=== PATIENT | male | born 1955 | race Caucasian/White ===

== ENCOUNTER 2018-01-13 13:35 | Emergency (ER) | payer OTHER, BC ==
[~2018-01-13] VITALS: Ht 165.1 cm; Wt 97.5 kg
[2018-01-13] MEDS ORDERED: LOSARTAN POTAS100 MG PO (13:49)
[2018-01-13] MEDS ORDERED: PAROXETINE HCL20 MG PO (13:49)
[2018-01-13] MEDS ORDERED: ASPIRIN81 MG PO (13:50)
[2018-01-13] MEDS ORDERED: FISH OIL 1,0001 EAC2 PO (13:50)
== END 2018-01-13 15:49 | disposition home or self-care (01) ==
LOC: ED 13:35
DX: H57.11 Ocular pain, right eye (principal); F17.200 Nicotine dependence, unspecified, uncomplicated; Z79.82 Long term (current) use of aspirin; Z79.899 Other long term (current) drug therapy
CPT/HCPCS: 99282

== ENCOUNTER 2020-03-27 08:33 | Day surgery (SDC) | payer BC ==
[~2020-03-27] VITALS: Ht 65.2 cm; Wt 97.5 kg
[~2020-03-27 08:33] MED LIST: ASPIRIN81 MG PO; FISH OIL 1,0001 EAC2 PO; LOSARTAN POTAS100 MG PO; PAROXETINE HCL20 MG PO; VITAMIN D325 MC2 PO
[2020-03-27] MEDS ORDERED: DAILY MULTIPLE1 EACH PO (08:53)
[2020-03-27] MEDS ORDERED: MELATONIN5 M2 PO (08:53)
--- NOTE | 2020-03-27 10:07 | NUR ---
03/27/20 1007 Christine Coleman 0945 PATIENT ARRIVES TO PACU SLEEPING. AWAKENS WITH VERBAL STIMULI. RESP EVEN AND UNLABORED, NC AT 5 LITERS. PATIENT BACK TO SLEEP WHEN NOT STIMULATED. 0950 PATIENT SLEEPING. NC DECREASED TO 3 LITERS. 1005 PATIENT SLEEPING. GIVES THUMBS UP WITH VERBAL STIMULI. RESP EVEN AND UNLABORED. NC OFF.
--- NOTE | 2020-03-27 19:09 | OR ---
[facility] [address], [place] [address] Signed DATE OF OPERATION: 03/27/2020 SURGEON: Aurea Barr MD PREOPERATIVE DIAGNOSES: 1. Screening. 2. Possible guaiac-positive stool. POSTOPERATIVE DIAGNOSES: 1. A 3 mm polyp at 4 cm. 2. 4 mm polyps x3 at 6 cm. 3. A 5 mm polyp at 12 cm. 4. A 5 mm polyp at 15 cm. 5. Minimal sigmoid diverticulosis. 6. Minimal internal hemorrhoids. PROCEDURE: Colonoscopy with hot biopsy. ESTIMATED BLOOD LOSS: None. INDICATIONS: Tayo is a 64-year-old gentleman asked to see me for his initial screening colonoscopy. He describes a sigmoidoscopy in his 40s for rectal bleeding. He thinks he may have had guaiac positive stool a couple of times, but he is not sure. He established with a new primary care provider and I was asked to see me for his initial screening colonoscopy. He gives no family history of colon cancer or polyps. In the office, I gave Tayo a pamphlet on colonoscopy. We looked at that together along with the risks including, but not limited to gas bloating, crampy abdominal pain, bleeding, perforation requiring surgery, and missed diagnosis. We also discussed the need for IV conscious sedation. He had expressed understanding and wished to proceed. PROCEDURE NOTE: Tayo was taken into our endoscopy suite and placed in the left lateral decubitus position. He was given IV sedation with 5 mg of Versed and 100 mcg of fentanyl. A digital rectal exam was performed and this was unremarkable. The adult colonoscope was introduced and advanced under direct visualization of camera without difficulty into the cecum itself. We could easily see the appendiceal orifice and the ileocecal valve. His prep was good. Scope was slowly withdrawn. He had a few diverticula in his sigmoid Electronically Signed By: AUREA BARR MD 03/27/20 1909 PATIENT NAME: TAYO MILLS OPERATIVE REPORT DATE OF : 59 REPORT #: [id number] PHYSICIAN: AUREA BARR MD PCP: NICOLÁS COLES MD REPORT IS CONFIDENTIAL AND NOT TO BE RELEASED WITHOUT AUTHORIZATION [facility] [address], [place] [address] Signed colon. They were small to moderate in size, few in number, and scattered about. His polyps were all down in the rectum easily removed with the help of hot biopsy forceps. Upon retroflexion of scope, he has minimal internal hemorrhoid tissue. After this, the gas was suctioned out, the colonoscope removed. Tayo tolerated the procedure quite well. RECOMMENDATIONS: I will see Tayo back in my office in 7 to 14 days to review his results. Aurea Barr MD ALB/MODL /[id number] cc: MD Dr. Nicolás Burgos Copies: AUREA BARR MD ~ Electronically Signed By: AUREA BARR MD 03/27/20 1909 PATIENT NAME: TAYO MILLS OPERATIVE REPORT DATE OF : 59 REPORT #: [id number] PHYSICIAN: AUREA BARR MD PCP: NICOLÁS COLES MD REPORT IS CONFIDENTIAL AND NOT TO BE RELEASED WITHOUT AUTHORIZATION
--- NOTE | 2020-03-28 11:44 | PATH ---
[facility] [address], [place] [address] Signed SPECIMEN(S): A COLON POLYP AT 6 CM SPECIMEN(S): B COLON POLYP AT 12 CM SPECIMEN(S): C COLON POLYP AT 15 CM SPECIMEN(S): D COLON POLYP AT 4 CM SPECIMEN SOURCE: A. COLON POLYP AT 6 CM B. COLON POLYP AT 12 CM C. COLON POLYP AT 15 CM D. COLON POLYP AT 4 CM CLINICAL HISTORY: Screening colonoscopy; polyps. MICROSCOPIC DESCRIPTION: Histologic sections of all submitted blocks are examined by light microscopy. These findings, together with the gross examination, support the pathologic diagnosis. FINAL PATHOLOGIC DIAGNOSIS: A. Colon, polyp at 6 cm, polypectomy: - Hyperplastic polyp. - Negative for dysplasia or malignancy. B. Colon, polyp at 12 cm, polypectomy: - Hyperplastic polyp. - Negative for dysplasia or malignancy. C. Colon, polyp at 15 cm, polypectomy: - Hyperplastic polyp. - Negative for dysplasia or malignancy. D. Colon, polyp at 4 cm, polypectomy: - Hyperplastic polyp. - Negative for dysplasia or malignancy. NAL:cml:C2NR GROSS DESCRIPTION: Four specimens are received in four containers, labeled "CD." A. The specimen, labeled "CD, colon polyp at 6 cm," is received in formalin and consists of two monzon soft tissue fragments that measure 0.2 cm in greatest dimension. The specimen is entirely submitted in cassette (A1). B. The specimen, labeled "CD, colon polyp at 12 cm," is received in formalin and consists of one monzon soft tissue fragment that measures 0.2 cm in greatest PATIENT NAME: TAYO MILLS PATHOLOGY DATE OF : 59 REPORT #: [id number] PHYSICIAN: [facility] PCP: GILES COLES MD REPORT IS CONFIDENTIAL AND NOT TO BE RELEASED WITHOUT AUTHORIZATION [facility] [address], [place] [address] Signed dimension. The specimen is entirely submitted in cassette (B1). C. The specimen, labeled "CD, colon polyp at 15 cm," is received in formalin and consists of one monzon soft tissue fragment that measures 0.2 cm in greatest dimension. The specimen is entirely submitted in cassette (C1). D. The specimen, labeled "CD, colon polyp at 4 cm," is received in formalin and consists of one monzon soft tissue fragment that measures 0.2 cm in greatest dimension. The specimen is entirely submitted in cassette (D1). JS (under the direct supervision of a pathologist) The Gross Description was prepared using a voice recognition system. The report was reviewed for accuracy; however, sound-alike word errors, addition and/or deletions may occur. If there is any question about this report, please contact Client Services. PERFORMING LABORATORY: The technical component was performed by [facility] [address] (Information Services Consultant: Ivory Pretty MD; CLIA# [id number]). Professional interpretation was performed by [employer] [facility], [address] [address] (CLIA# [id number]). Diagnostician: Hina Bhatti MD Pathologist Electronically Signed 03/28/2020 Copies: ~ PATIENT NAME: TAYO MILLS KORIN PATHOLOGY DATE OF : 59 REPORT #: [id number] PHYSICIAN: [facility] PCP: GILES COLES MD REPORT IS CONFIDENTIAL AND NOT TO BE RELEASED WITHOUT AUTHORIZATION
== END 2020-03-27 10:50 | disposition home or self-care (01) ==
LOC: DS 08:33 → OPS 08:33 → DS 08:40 → OPS 08:40 → DS 09:45 → OPS 10:50
PROVIDERS: Colon & Rectal Surgery
PROC: 0DB Gastrointestinal System, Excision (ICD-10-PCS; principal; 2020-03-27 09:45)
DX: Z12.11 Encounter for screening for malignant neoplasm of colon (principal); K63.5 Polyp of colon; K64.8 Other hemorrhoids; K57.30 Diverticulosis of large intestine without perforation or abscess without bleeding; I10 Essential (primary) hypertension; E78.5 Hyperlipidemia, unspecified; E03.9 Hypothyroidism, unspecified; F41.9 Anxiety disorder, unspecified; Z79.899 Other long term (current) drug therapy; Z79.82 Long term (current) use of aspirin
CPT/HCPCS: 99153; G0500; J2250; J3010; J7121

== ENCOUNTER 2020-11-24 10:32 | Emergency (ER) | payer BC ==
[~2020-11-24] VITALS: Ht 165.1 cm; Wt 97.5 kg
[~2020-11-24 10:32] MED LIST changes: +DAILY MULTIPLE1 EACH PO; +MELATONIN5 M2 PO
--- OUTSIDE RECORDS SUMMARY | 2020-11-24 10:38 | XMS ---
PreManage Notification: TAYO MILLS Security Construction Representative Events No recent Security Events currently on file CRITERIA MET - [facility]ARE PROVIDERS There are no care providers on record at this time. Yadira has no Care Guidelines for this patient. Brian VISIT COUNT (12 MO.) 1 ANGELITO Muro TOTAL 1 NOTE: Visits indicate total known visits. ED/UCC VISIT TRACKING (12 MO.) 11/24/2020 10:35 ANGELITO Lugo OR TYPE: Emergency COMPLAINT: - RT ANKLE POSSIBLE INJURY INPATIENT VISIT TRACKING (12 MO.) No inpatient visits to display in this time frame [email or web address]
[2020-11-24] MEDS ORDERED: SIMVASTATIN20 MG PO (14:05)
[2020-11-24] MEDS ORDERED: AMLODIPINE BESYL5 MG PO (14:05)
[2020-11-24] MEDS ORDERED: ELIQUIS5 MG PO (15:53)
== END 2020-11-24 16:07 | disposition home or self-care (01) ==
LOC: ED 10:32
DX: I82.4Y1 Acute embolism and thrombosis of unspecified deep veins of right proximal lower extremity (principal); Z87.891 Personal history of nicotine dependence; Z79.899 Other long term (current) drug therapy; Z79.82 Long term (current) use of aspirin
CPT/HCPCS: 93971; 99283-25

== ENCOUNTER 2021-09-05 14:20 | Emergency (ER) | payer OTHER, BC ==
[~2021-09-05] VITALS: Ht 165.1 cm; Wt 93.9 kg
[~2021-09-05 14:20] MED LIST changes: +AMLODIPINE BESYL5 MG PO; +ELIQUIS5 MG PO; +SIMVASTATIN20 MG PO
== END 2021-09-05 16:34 | disposition home or self-care (01) ==
LOC: ED 14:20
DX: S63.8X1A Sprain of other part of right wrist and hand, initial encounter (principal); I10 Essential (primary) hypertension; Z87.891 Personal history of nicotine dependence; Z79.899 Other long term (current) drug therapy; Z79.82 Long term (current) use of aspirin; X50.1XXA Overexertion from prolonged static or awkward postures, initial encounter
CPT/HCPCS: 73110; 73130; 99283-25